=== PATIENT | female | born 1985 | race African-American/Black ===

== ENCOUNTER 2018-07-14 15:34 | Outpatient (CLI) | payer OTHER ==
--- NOTE | 2018-07-14 16:58 | RAD ---
THREE VIEW LEFT WRIST: 07/14/18 INDICATION: Dislocation, injury, pain. FINDINGS: There is no evidence of fracture or acute carpal malalignment identified. IMPRESSION: No acute fracture of the left wrist. POS: [facility]
== END 2018-07-14 15:35 | disposition home or self-care (01) ==
LOC: SCSRAD 15:34
PROVIDERS: ATTEND Family Medicine
DX: S63.005A Unspecified dislocation of left wrist and hand, initial encounter (principal)